=== PATIENT | male | born 1985 | race Caucasian/White ===

== ENCOUNTER 2024-04-06 14:52 | Emergency (ER) | payer MEDICAID ==
[~2024-04-06] VITALS: Ht 172.7 cm; Wt 62.7 kg
[2024-04-06 18:02] LABS: STREP A SCREEN NEGATIVE (Neg)
[2024-04-06] MEDS ORDERED: AZIT250T83 PO (18:24)
[2024-04-06 18:41] VITALS: BP 134/78; PULSE 88; RESP 20; TEMP 97.8; O2SAT 99
== END 2024-04-06 18:42 | disposition home or self-care (01) ==
LOC: ER 14:53
DX: J02.9 Acute pharyngitis, unspecified (principal); R50.9 Fever, unspecified; Z88.0 Allergy status to penicillin; Z88.1 Allergy status to other antibiotic agents; F41.9 Anxiety disorder, unspecified; Z72.89 Other problems related to lifestyle; Z56.0 Unemployment, unspecified
CPT/HCPCS: 87081; 87880; 99283

== ENCOUNTER 2024-12-10 21:39 | Emergency (ER) | payer MEDICAID | END 2024-12-10 23:19 | disposition left against medical advice (07) | LOC: ER 21:40 | DX: R06.02 Shortness of breath (principal); Z88.0 Allergy status to penicillin; Z53.21 Procedure and treatment not carried out due to patient leaving prior to being seen by health care provider ==